=== PATIENT | female | born 1975 | race Caucasian/White ===

== ENCOUNTER 2021-10-14 12:04 | Emergency (ER) | payer OTHER ==
[2021-10-14] MEDS ORDERED: KETOROLAC TROMETHAMINE 15 MG/ML VIAL IM ONE (12:17)
[2021-10-14] MEDS ORDERED: METHOCARBAMOL 500 MG TABLET PO ONE (12:18)
[2021-10-14 13:03] VITALS: BP 130/71; PULSE 72; TEMP 98.9; BMI 32.0
== END 2021-10-14 13:05 | disposition home or self-care (01) ==
LOC: FER 12:04
PROC: 3E0233Z Introduction of Anti-inflammatory into Muscle, Percutaneous Approach (ICD-10-PCS; principal; 2021-10-14)
DX: M54.2 Cervicalgia (principal); W50.0XXA Accidental hit or strike by another person, initial encounter
CPT/HCPCS: 99284-25